=== PATIENT | male | born 1940 | race Caucasian/White ===

== ENCOUNTER → 2016-11-22 | Outpatient (CLI) | payer MEDICARE ==
[2016-11-22 11:58] LABS: Blood Urea Nitrogen 22 mg/dL (9-20); Non-African American GFR(MDRD) >60 (>60 ml/min/1.73 sqM)
== END | disposition home or self-care (01) ==
LOC: LABWHC1 11:18
PROVIDERS: ATTEND Physical Medicine & Rehabilitation
DX: Z01.812 Encounter for preprocedural laboratory examination (principal)
CPT/HCPCS: 36415; 82565; 84520

== ENCOUNTER → 2019-06-06 | Outpatient (CLI) | payer MEDICARE ==
[2019-06-06 10:52] LABS: HGB 12.4 gm/dL (13.0-17.5); MCH 27.1 pg (25.0-35.0); MCV 87.4 fL (80.0-100.0); Mean Platelet Volume 7.6; Platelet Count 310 k/uL (150-450); RBC 4.57 m/uL (4.30-5.90); RDW 14.4 % (11.5-15.5); WBC 11.5 k/uL (3.8-10.6)
[2019-06-06 11:45] LABS: Erythrocyte Sedimentation Rate 16 mm/hr (0-15)
== END | disposition home or self-care (01) ==
LOC: LABWHC1 10:16
PROVIDERS: ATTEND Orthopaedic Surgery
DX: I10 Essential (primary) hypertension (principal); M17.12 Unilateral primary osteoarthritis, left knee; E13.9 Other specified diabetes mellitus without complications; Z68.31 Body mass index [BMI] 31.0-31.9, adult
CPT/HCPCS: 36415; 83520; 85027; 85652; 86140

== ENCOUNTER → 2019-09-07 | Outpatient (CLI) | payer MEDICARE ==
[2019-09-07 10:12] LABS: Appearance,Urine Clear (Clear); Bilirubin,Urine Negative (Negative); Blood,Urine Negative (Negative); Color,Urine Yellow; Glucose,Urine (UA) Negative (Negative); HCT 42.3 % (39.0-53.0); HGB 13.2 gm/dL (13.0-17.5); Ketones,Urine Negative (Negative); Leukocyte Esterase,Urine Small (Negative); MCH 27.2 pg (25.0-35.0); MCHC 31.1 g/dL (31.0-37.0); MCV 87.3 fL (80.0-100.0); Mean Platelet Volume 6.5; Nitrite,Urine Negative (Negative); PH, Urine 5.5 (5.0-8.0); Platelet Count 356 k/uL (150-450); Protein,Urine Trace (Negative); RBC 4.84 m/uL (4.30-5.90); RDW 13.1 % (11.5-15.5); Specific Gravity,Urine 1.012 (1.001-1.035); Urobilinogen,Urine <2.0 mg/dL (<2.0); WBC 6.9 k/uL (3.8-10.6); WBC,Urine 2 /hpf (0-5)
[2019-09-07 10:34] LABS: Albumin 4.1 g/dL (3.5-5.0); Calcium 9.7 mg/dL (8.4-10.2); Potassium 5.5 mmol/L (3.5-5.1); Total Bilirubin 0.6 mg/dL (0.2-1.3)
[2019-09-07 10:50] LABS: INR 0.9 (<1.2); Partial Thromboplastin Time 24.5 sec (22.0-30.0); Prothrombin Time 9.8 sec (9.0-12.0)
== END | disposition home or self-care (01) ==
LOC: LABPAT 09:30
PROVIDERS: ATTEND Orthopaedic Surgery
DX: Z01.812 Encounter for preprocedural laboratory examination (principal); Z01.818 Encounter for other preprocedural examination
CPT/HCPCS: 36415; 80053; 81001; 85027; 85610; 85730; 87070

== ENCOUNTER 2019-09-17 05:34 | Day surgery (SDC) | payer MEDICARE ==
[2019-09-12 10:20] VITALS: BMI 32.3
[~2019-09-17 05:34] MED LIST: ACETAMINOPHEN TAB 500 MG TAB PO ONE; MELOXICAM 7.5 MG TAB PO ONE; ONDANSETRON 4 MG/2 ML VIAL IVP ONE; TRANEXAMIC ACID 1,000 MG in SODIUM CHLORIDE 0.9% 100 ML IVPB ONE; VANCOMYCIN 1,000 MG in SODIUM CHLORIDE 0.9% 250 ML IVPB ONE
[2019-09-17] MEDS ORDERED: LIDOCAINE 1% 20 ML VIAL (10MG/ML) FOR IV START INTRADERMA PRN (05:45)
[2019-09-17] MEDS ORDERED: DEXAMETHASONE SOD PHOSPHATE 10 MG/ML 1 ML VIAL IV ONE (05:45)
[2019-09-17] MEDS ORDERED: ONDANSETRON 4 MG/2 ML VIAL IVP ONE (05:45)
[2019-09-17] MEDS ORDERED: SCOPOLAMINE 1.5MG/72HR PATCH TRANSDERM ONE (05:45)
[2019-09-17] MEDS ORDERED: MIDAZOLAM 2 MG/2 ML VIAL IV PRN (05:45)
[2019-09-17] MEDS ORDERED: HYDROmorphone 0.5 MG/0.5 ML SYRINGE IVP PRN (05:45)
[2019-09-17] MEDS ORDERED: ROPIVACAINE 246.25 MG, EPINEPHrine 0.5 MG, KETOROLAC 30 MG, cloNIDine HCL/PF 80 MCG, WA... MISCELLANE ONE ×5 (06:00)
[2019-09-17 06:40] LABS: Glucose,Whole Blood 124 mg/dL (75-99)
[2019-09-17] MEDS: LACTATED RINGERS 1,000 ML IV SCH ×2 (06:45→15:12)
[2019-09-17] MEDS ORDERED: fentaNYL (PF) 50 MCG/ML 2 ML AMP IVP ONE (07:17)
[2019-09-17] MEDS ORDERED: ePHEDrine SULFATE/0.9% NACL/PF 50 MG/5 ML SYRINGE IV ONE (07:26)
[2019-09-17] MEDS ORDERED: TRANEXAMIC ACID 1,000 MG/10 ML VIAL ONE (07:26)
[2019-09-17] MEDS ORDERED: fentaNYL (PF) 50 MCG/ML 2 ML AMP ONE (07:26)
[2019-09-17] MEDS ORDERED: SODIUM CHLORIDE 0.9% 100 ML BAG ONE (07:26)
[2019-09-17] MEDS ORDERED: ceFAZolin 1,000 MG VIAL IVPB ONE (07:52)
--- NOTE | 2019-09-17 08:11 | P.ANPRN ---
Procedure Note - Anesthesia - Nerve Block Performed Left Adductor Canal Infusion Time Out Performed: Yes Date of Procedure: 09/17/19 Procedure Start Time: 07:16 Procedure Stop Time: 07:24 Location of Patient: PreOp Indication: Acute Post-Operative Pain, Requested by Surgeon Specifically requested for management of pain by DrLalito: Vladimir Raza Sedation Type: Sedate with meaningful contact maintained Preparation: Sterile Prep, Sterile Dressing Position: Supine Catheter Depth at Skin (cm): 5 Catheter: Indwelling Needle Types: Pajunk Needle Gauge: 21 Ultrasound used to visualize needle placement: Yes Ultrasound used to observe medication spread: Yes Injectate: 0.5% Ropivacaine (see comment for volume) Blood Aspirated: No Pain Paresthesia on Injection Noted: No Resistance on Injection: Normal Image Stored and Saved: Yes Events: Uneventful and Well Tolerated
[2019-09-17] MEDS ORDERED: ceFAZolin 3,000 MG in SODIUM CHLORIDE 0.9% IRRIGATIO 3,000 ML IRRIGATION ONE (08:12)
[2019-09-17] MEDS ORDERED: LACTATED RINGERS 1,000 ML IV ONE (08:38)
--- NOTE | 2019-09-17 09:33 | P.OP ---
Date of Procedure: 09/17/19 Procedure(s) Performed: PREOPERATIVE DIAGNOSIS: Left knee severe osteoarthritis with genu varum POSTOPERATIVE DIAGNOSIS: Left knee severe osteoarthritis with genu varum OPERATION: Left knee cemented total replacement arthroplasty. ANESTHESIA: Spinal ESTIMATED BLOOD LOSS: 100 ml. CELL BIOLOGY SCIENTIST: Heber Story PA-C (assistance with: patient positioning, retraction, exposure, hemostasis, leg positioning, implantation, irrigation, closure, dressing) COMPLICATIONS: None apparent. COMPONENTS IMPLANTED: Persona system from [employer] INDICATIONS: Mr. Guerra is an 79-year-old male with a history of left knee osteoarthritis. He has already successfully undergone right knee replacement in 2013. Conservative treatment has been tried and has been unsuccessful in controlling symptoms adequately. The operation of knee replacement has been discussed at length in the office, as well as potential risks and complications. These are inclusive of, but not limited to: bleeding, infection, scarring, discomfort, blood vessel and nerve damage, need for further surgery, failure to relieve symptoms, persistence, recurrence, or worsening of problems, loosening, dislocation, wear, blood clot, pulmonary embolism, , gait dysfunction, stiffness, and other risks as discussed in the office. The patient elects to proceed and the consent form has been signed. PROCEDURE: The patient was taken to the operating room and positioned on the operating room table in the supine position. Anesthesia was initiated. Care was taken to make sure that all pressure points were adequately padded. The operative lower extremity was prepped and draped in the usual aseptic fashion using ChloraPrep. Ioban drape was used for the case and the patient received intravenous antibiotics within one hour of the incision. A pneumotourniquet and leg mays were used for the case. The limb was exsanguinated with an Esmarch bandage and the tourniquet was inflated to 350 mmHg. Time-out was called confirming the patient's identity, side, procedure and administration of antibiotics and tranexamic acid, 1 g IV. Due to the patient's history of possible MRSA infection, vancomycin IV as well as cefazolin IV was administered preoperatively. The incision was then created midline directly over the knee, carried down through skin and into the subcutaneous tissues and down to fascia. Full thickness subcutaneous medial flap was developed. Medial parapatellar arthrotomy was performed and the interior of the knee was inspected. There was end-stage osteoarthritis of the knee with a mild to moderate genu varum type deformity. The fat pad was excised and proximal medial release on the tibia was completed using meticulous dissection and a curved osteotome. The anterior cruciate ligament was taken down. Note was made of significant attrition of the anterior and significant degenerative appearance of the posterior cruciate ligaments. The exposure was excellent. The knee was flexed 90 degrees and the patella was everted. A spot was chosen on the femur approximately 1 cm anterior to the posterior cruciate ligament i nsertion and an intramedullary hole was created within the femur. The intramedullary guide was then set to 5 degrees of valgus. The distal cutting block was attached and pinned into position. An appropriate amount of distal femoral resection was set. The oscillating saw was then used to make the distal femoral cut. This cut was confirmed to be flat with the flat end of an osteotome. The retractors were placed around the tibia and the tibial surface was addressed. The angle and depth of resection was adjusted using an extramedullary cutting guide. The guide had a built-in 3 degree posterior slope cut. Once the cutting guide was adjusted appropriately and in line with the axis of the tibia and confirmed to be in good position in relation to the second metatarsal and transmalleolar axis, the tibial cut was then created with protection of the posterior neurovascular structures and the collateral ligaments. The tibial cut surface was removed and sized. Femoral sizing was then accomplished using anterior referencing. Care was taken to analyze the posterior condyles for signs of deficiency or severe wear, and adjustments to the guide were made, as appropriate. 3 degree external ro tation pins were placed. The cutting jig for the femur was applied to these pins. The planned cuts were further analyzed prior to performing them with the oscillating saw. No femoral notching was produced. Bone fragments were removed and the cut surfaces were finished, as necessary, with a reciprocating saw. Spacer block technique was then used to confirm that the flexion and extension gaps were equal. Soft tissue releases and adjustment of the tibial and/or femoral cuts were made, as necessary, until the gaps were equal. This included release of the posterior cruciate ligament, which was tight in this patient. The femur was then further finished for a posterior cruciate ligament substituting component. Patellar resurfacing was performed using a reamer. The size of the required pat ellar component was estimated and the patellar surface was then reamed down to a residual thickness which would recreate the [place] thickness with the component. The exact placement of the patellar component was adjusted for position based on preoperative x-rays and intraoperative findings. Prior to placing trial components, anesthetic solution consisting of ropivicaine with epinephrine, ketorolac, and clonidine was injected carefully and methodically in a grid pattern using aspiration technique into the soft tissue around the knee circumferentially, starting with the deeper tissues first and progressing to fascia, and then finally the skin/subcutaneous tissue. Particular care was taken when injecting the posterior capsule. The trial components were inserted. The tibial tray was allowed to self center and the patella was noted to track very well. The position of the tibial component was marked and the tibia was then finished for a stemmed tibial component. Cement containing antibiotic was mixed on the back table and applied to the final components. Trial components were removed and the cut surfaces of the bone were pulse lavaged thoroughly and dried. Antibiotic Cement was then applied to the tibial surface and pressurized into the surface using finger pressurization technique. The tibial component was then applied and excess cement was removed after it was impacted securely and noted to be flush with the cut surface. In similar fashion, the antibiotic cement was applied to the cut femoral surface, pressurized in using finger pressurization and the component was im pacted into place. Excess cement was removed. The polyethylene spacer was then implanted and locked into position. The patellar component was then applied in similar technique and a patellar clamp was used to hold the patella in place as the cement hardened. Once the cement had fully hardened, the knee was reinspected. Any other cement extrusion was removed and final kinematic testing showed range of motion from 0 to 130 degrees with excellent stability, both medially and laterally and appropriate alignment of the leg. Patellar tracking was excellent. The knee was then thoroughly pulse lavaged with normal saline. The tourniquet was deflated and hemostasis was obtained with electrocautery and IV tranexamic acid, 1 g given prior to inflation of the tourniquet and another gram given at the time of closure. Closure was with #2 Ethibond in the fascia and supplemented with #2 Quill, 2-0 Vicryl suture was used for the subcutaneous tissues and 3-0 Quill for the skin. Dermabond/Steri-Strips were then applied. A lightly compressive dressing was applied using Webril and an Asad wrap. The patient was then transferred to [facility] and taken to the recovery room in stable condition. Sponge and needle counts were correct.
[2019-09-17] MEDS ORDERED: NALOXONE 0.4 MG/ML 1 ML VIAL IV PRN (09:48)
[2019-09-17] MEDS ORDERED: hydrOXYzine PAMOATE 25 MG CAP PO PRN (09:48)
[2019-09-17] MEDS ORDERED: MAGNESIUM HYDROXIDE 2,400 MG/10 ML CUP PO PRN (09:48)
[2019-09-17] MEDS ORDERED: ONDANSETRON 4 MG/2 ML VIAL IVP PRN (09:48)
[2019-09-17] MEDS ORDERED: ROPIVACAINE 0.2%-NS ON-Q PUMP 1,090 MG, EMPTY PAIN BALL 1 EACH MISCELLANE PRN (10:05)
--- NOTE | 2019-09-17 10:27 | XR ---
EXAMINATION TYPE: XR knee limited LT DATE OF EXAM: 09/17/2019 COMPARISON: NONE HISTORY: post op TECHNIQUE: 2 view FINDINGS: There is postoperative change with soft tissue edema and emphysema. Postoperative change ap pears in near-anatomic alignment. Soft tissue ossification seen anterior to the distal diaphysis of t he femur noted. IMPRESSION: Postoperative change
[2019-09-17 10:36] LABS: Glucose,Whole Blood 175 mg/dL (75-99)
[2019-09-17] MEDS: TAMSULOSIN 0.4 MG CAP.ER.24H PO SCH (16:06)
[2019-09-17] MEDS: LISINOPRIL 20 MG TAB PO SCH ×2 (16:06→22:33)
[2019-09-17 16:41] LABS: Glucose,Whole Blood 360 mg/dL (75-99)
[2019-09-17] MEDS: INSULIN ASPART (NovoLOG) 100 UNIT/ML VIAL SQ SCH ×2 (17:01→20:31)
[2019-09-17] MEDS: metFORMIN 500 MG TAB PO SCH (20:17)
[2019-09-17 20:18] LABS: Glucose,Whole Blood 320 mg/dL (75-99)
[2019-09-17] MEDS ORDERED: VANCOMYCIN IV PER PHARMACY 1 EACH MISC MISCELLANE SCH (21:00)
[2019-09-17] MEDS ORDERED: SENNOSIDES-DOCUSATE SODIUM 1 EACH TAB PO SCH (21:00)
[2019-09-18] MEDS: HYDROcodone/APAP 7.5-325MG 1 EACH TAB PO PRN ×2 (05:45→12:06)
[2019-09-18 07:05] LABS: Glucose,Whole Blood 83 mg/dL (75-99)
[2019-09-18] MEDS: LACTATED RINGERS 1,000 ML IV SCH ×2 (07:26→09:20)
[2019-09-18] MEDS: INSULIN ASPART (NovoLOG) 100 UNIT/ML VIAL SQ SCH ×2 (07:28→12:06)
[2019-09-18 07:29] LABS: Basophils % (A) 0 %; Eosinophils # (A) 0.1 k/uL (0-0.7); Eosinophils % (A) 1 %; HCT 32.6 % (39.0-53.0); Lymphocytes # (A) 1.8 k/uL (1.0-4.8); Lymphocytes % (A) 13 %; MCH 27.4 pg (25.0-35.0); MCHC 31.4 g/dL (31.0-37.0); Mean Platelet Volume 8.4; Monocytes # (A) 0.9 k/uL (0-1.0); Monocytes % (A) 7 %; Neutrophils % (A) 79 %; Platelet Count 260 k/uL (150-450); RBC 3.74 m/uL (4.30-5.90)
[2019-09-18 07:32] LABS: HGB 10.2 gm/dL (13.0-17.5)
[2019-09-18] MEDS ORDERED: THYROID, PORK 30 MG TAB PO SCH (09:00)
[2019-09-18] MEDS ORDERED: ASPIRIN 325 MG TAB PO SCH (09:00)
[2019-09-18] MEDS: metFORMIN 500 MG TAB PO SCH (09:21)
[2019-09-18] MEDS: TAMSULOSIN 0.4 MG CAP.ER.24H PO SCH (09:22)
[2019-09-18] MEDS: LISINOPRIL 20 MG TAB PO SCH (09:22)
--- NOTE | 2019-09-18 10:26 | P.PN ---
Progress Note - Text 09/18 707am 79-year-old male status post total knee replacement by Dr. Raza. Patient has an On-Q pump for postop pain control with the solution running at 10 mL an hour, patient has a VAS of 2 and to continue On-Q pump infusion
[2019-09-18 11:48] LABS: Glucose,Whole Blood 106 mg/dL (75-99)
--- NOTE | 2019-09-18 15:01 | P.CONS ---
History of Present Illness - Reason for Consult Consult date: 09/18/19 medical management - Chief Complaint knee pain - History of Present Illness Jose Guerra is an 79 yo M with PMH of OA, HTN, T2DM, hypothyroid who is admitted for a scheduled L TKA with Dr. Raza. He underwent the procedure yesterday and is feeling overall well this morning. He reports minimal pain with rest and tolerable with ambulation. He has been able to complete ADLs today, denies chest pain, shortness of breath, leg swelling, fever, or chills. Labs and vitals are stable. Review of Systems All systems: negative Constitutional: Denies chills, Denies fever Eyes: denies blurred vision, denies pain Ears, nose, mouth and throat: Denies headache, Denies sore throat Cardiovascular: Denies chest pain, Denies shortness of breath Respiratory: Denies cough Gastrointestinal: Denies abdominal pain, Denies diarrhea, Denies nausea, Denies vomiting Musculoskeletal: Reports as per HPI, Reports gait dysfunction, Denies myalgias Integumentary: Denies pruritus, Denies rash Neurological: Denies numbness, Denies weakness Psychiatric: Denies anxiety, Denies depression Endocrine: Denies fatigue, Denies weight change Past Medical History Past Medical History: Coronary Artery Disease (CAD), Cancer, Diabetes Mellitus, Hypertension, Prostate Disorder Additional Past Medical History / Comment(s): hx of melanoma skin, cyst on chest History of Any Multi-Drug Resistant Organisms: MRSA Year Discovered:: 06/04/19 MDRO Source:: Right Knee Past Surgical History: Joint Replacement, Orthopedic Surgery Additional Past Surgical History / Comment(s): jermaine shoulder rotator cuff, left carotid, jermaine cataract removal, cyst on chest drained, rt knee replaced, TLK Past Anesthesia/Blood Transfusion Reactions: No Reported Reaction Past Psychological History: No Psychological Hx Reported Smoking Status: Former smoker Past Alcohol Use History: Occasional Additional Past Alcohol Use History / Comment(s): "socially". smoker for 28 years quit 1981 Past Drug Use History: None Reported - Past Family History Father Family Medical History: Cancer Additional Family Medical History / Comment(s): Lung Cancer Sister(s) Family Medical History: Cancer Additional Family Medical History / Comment(s): Breast Cancer Medications and Allergies Home Medications Medication Instructions Recorded Confirmed Type Glimepiride [Amaryl] 2 mg PO AC-BRKFST 05/02/14 12/09/19 History Tamsulosin [Flomax] 0.4 mg PO DAILY 02/08/14 09/17/19 History metFORMIN HCL [Glucophage] 500 mg PO BID 02/08/14 09/17/19 History Ascorbic Acid [Vitamin C] 1,000 mg PO DAILY 09/12/19 09/17/19 History Cholecalciferol [Vitamin D3 (25 5,000 unit PO DAILY 09/12/19 09/17/19 History Mcg = 1000 Iu)] Cranberry Fruit Extract [Cranberry] 4,200 mg PO DAILY 09/12/19 09/17/19 History Lisinopril [Zestril] 40 mg PO BID 09/12/19 09/17/19 History Multivitamins, Thera [Multivitamin 1 tab PO DAILY 09/12/19 09/17/19 History (formulary)] Thyroid,Pork [[place] Thyroid] 60 mg PO DAILY 09/12/19 09/17/19 History Aspirin 325 mg PO DAILY #28 tab 09/18/19 Rx HYDROcodone/APAP 7.5-325MG [[place] 1 tab PO Q6HR PRN 7 Days #30 tab 09/18/19 Rx 7.5-325] Allergies Allergy/AdvReac Type Severity Reaction Status Date / Time Penicillins Allergy Swelling Verified 09/17/19 06:13 venom-honey bee Allergy Swelling Verified 09/17/19 06:13 [bee venom (honey bee)] Physical Exam Vitals: Vital Signs Temp Pulse Resp BP Pulse Ox 09/18/19 09:13 67 111/65 95 09/18/19 07:00 98.3 F 58 L 15 105/49 95 09/17/19 23:00 97.9 F 67 16 119/54 96 Intake and Output 09/17/19 09/18/19 09/18/19 22:59 06:59 14:59 Other: Voiding Method Toilet Toilet General: well nourished, well developed, NAD. Vitals reviewed Eyes: PERRL, EOMI, conjunctiva normal HENT: normocephalic, mucus membranes moist Neck: supple, no JVD Lungs: normal respiratory effort, no wheezes or rales CV: Regular rate and rhythm, no murmur. Peripheral pulses 2+ Abdomen: soft, nondistended, no organomegaly MSK: LLE with gilson wrap. No distal edema. Lymph: no cervical or axillary LAD Skin: warm and dry. Neuro: A&Ox3, normal mood and affect Results CBC & Chem 7: 09/18/19 06:45 09/17/19 06:35 Labs: Abnormal Lab Results - Last 24 Hours (Table) 09/17/19 09/17/19 09/18/19 Range/Units 16:39 20:16 06:45 WBC 14.0 H (3.8-10.6) k/uL RBC 3.74 L (4.30-5.90) m/uL Hgb 10.2 L D (13.0-17.5) gm/dL Hct 32.6 L (39.0-53.0) % Neutrophils # 11.0 H (1.3-7.7) k/uL POC Glucose (mg/dL) 360 H 320 H (75-99) mg/dL 09/18/19 Range/Units 11:36 WBC (3.8-10.6) k/uL RBC (4.30-5.90) m/uL Hgb (13.0-17.5) gm/dL Hct (39.0-53.0) % Neutrophils # (1.3-7.7) k/uL POC Glucose (mg/dL) 106 H (75-99) mg/dL Assessment and Plan (1) Essential hypertension Current Visit: Yes Status: Acute Code(s): I10 - ESSENTIAL (PRIMARY) HYPERTENSION SNOMED Code(s): 63615063 (2) Type 2 diabetes mellitus Current Visit: Yes Status: Acute Code(s): E11.9 - TYPE 2 DIABETES MELLITUS WITHOUT COMPLICATIONS SNOMED Code(s): 53243939 (3) Acquired hypothyroidism Current Visit: Yes Status: Acute Code(s): E03.9 - HYPOTHYROIDISM, UNSPECI FIED SNOMED Code(s): 209901042 (4) Osteoarthritis Current Visit: Yes Status: Acute Code(s): M19.90 - UNSPECIFIED OSTEOARTHRITIS, UNSPECIFIED SITE SNOMED Code(s): 119002875 (5) S/P total knee arthroplasty Current Visit: No Status: Acute Code(s): Z96.659 - PRESENCE OF UNSPECIFIED ARTIFICIAL KNEE JOINT SNOMED Code(s): 9534618064298 Plan: 1. S/p L TKA. Pain control. Encourage ambulation. Continue with IS. He is medically stable for discharge 2. HTN. Continue lisinopril 3. T2DM. Continue metformin. Accucheck/sliding scale DVT prophylaxis ASA 325 mg
--- NOTE | 2019-09-18 15:36 | P.DS ---
Providers Expected date of discharge: 09/18/19 Attending physician: Vladimir Raza Consults: 09/17/19 09:48 Consult Physician Routine Consulting Provider: Luis E Ponce Consult Reason/Comments: Postoperative medical management Do you want consulting provider notified?: Yes Primary care physician: Lexis Mcfarland [place] [facility] Course: This is an 79-year-old male who has been followed for left knee osteoarthritis. Conservative measures have failed at controlling his symptoms, therefore surgery was recommended. He underwent a successful right knee total arthroplasty in [address] Raza. The patient underwent a left ottal knee arthroplasty on 09/17/[address] Raza. He was admitted to [facility] following the procedure with a consult placed to internal medicine for perioperative medical management. The procedure was performed without complication or sequelae. The patient is doing fairly well postoperatively. Vital signs and labs are stable on postoperative day #1. Patient was examined bedside today. He states he is doing very well this morning, the pain in his left knee is currently well-controlled. He was up to the bathroom multiple times throughout the night, with assistance and with a walker. He tolerated his breakfast well. He has had a bowel movement post- operatively. He states he is safe being discharged to home, he has the help of his . He denies chest pain, shortness of breath, nausea, vomiting, numbness or tingling. Vital signs stable. On examination, the patient is sitting up in bed in no apparent distress. He is alert and orientated x3. On inspection of the left knee, there is an THERESA bandage in place with no active drainage or bleeding. Neurovascular status is intact throughout the left lower extremity with motor and sensation fully intact. Calf is soft and nontender. 2+ dorsalis pedis pulse and a brisk capillary refill is present. Right lower extremity compression cuff in place, the right calf is soft and nontender to palpation. Patient is discharged home in good condition, pending medical clearance. Patient will follow-up with Dr. Raza in the office in 2 weeks. Please see med rec for accurate list of discharge medication. Patient Condition at Discharge: Fair Plan - Discharge Summary New Discharge Prescriptions: New HYDROcodone/APAP 7.5-325MG [[place] 7.5-325] 1 tab PO Q6HR PRN 7 Days #30 tab PRN Reason: Pain Aspirin 325 mg PO DAILY #28 tab No Action Tamsulosin [Flomax] 0.4 mg PO DAILY metFORMIN HCL [Glucophage] 500 mg PO BID Glimepiride [Amaryl] 2 mg PO AC-BRKFST Cholecalciferol [Vitamin D3 (25 Mcg = 1000 Iu)] 5,000 unit PO DAILY Thyroid,Pork [[place] Thyroid] 60 mg PO DAILY Multivitamins, Thera [Multivitamin (formulary)] 1 tab PO DAILY Lisinopril [Zestril] 40 mg PO BID Cranberry Fruit Extract [Cranberry] 4,200 mg PO DAILY Ascorbic Acid [Vitamin C] 1,000 mg PO DAILY Discharge Medication List Glimepiride [Amaryl] 2 mg PO AC-BRKFST 02/08/14 [History] Tamsulosin [Flomax] 0.4 mg PO DAILY 02/08/14 [History] metFORMIN HCL [Glucophage] 500 mg PO BID 02/08/14 [History] Ascorbic Acid [Vitamin C] 1,000 mg PO DAILY 09/12/19 [History] Cholecalciferol [Vitamin D3 (25 Mcg = 1000 Iu)] 5,000 unit PO DAILY 09/12/19 [History] Cranberry Fruit Extract [Cranberry] 4,200 mg PO DAILY 09/12/19 [History] Lisinopril [Zestril] 40 mg PO BID 09/12/19 [History] Multivitamins, Thera [Multivitamin (formulary)] 1 tab PO DAILY 09/12/19 [History] Thyroid,Pork [[place] Thyroid] 60 mg PO DAILY 09/12/19 [History] Aspirin 325 mg PO DAILY #28 tab 09/18/19 [Rx] HYDROcodone/APAP 7.5-325MG [[place] 7.5-325] 1 tab PO Q6HR PRN 7 Days #30 tab 09/18/19 [Rx] Follow up Appointment(s)/Referral(s): [facility], [NON-STAFF] - As Needed Vladimir Raza MD [STAFF PHYSICIAN] - 09/28/19 9:40 am (Patient may follow-up with Dr. Raza at [facility] in 2-3 weeks following discharge. ) Lexis Mcfarland DO [Primary Care Provider] - 1 Week Activity/Diet/Wound Care/Special Instructions: 1. Keep dressing over the left knee clean, dry, intact 2. Daily dressing changes over the left knee as needed 3. Weight-bear as tolerated on the left lower extremity 4. Patient may shower without dressing intact incision site remains dry over the next 72 hours 5. Take medications as prescribed 6. Do not soak in tub Discharge Disposition: HOME SELF-CARE
[2019-09-18 16:15] VITALS: BP 165/71; PULSE 69; RESP 16; TEMP 97.8
[2019-09-18 17:01] LABS: Glucose,Whole Blood 169 mg/dL (75-99)
[2019-09-18] MEDS ORDERED: LISINOPRIL 20 MG TAB PO SCH (21:00)
== END 2019-09-18 17:24 | disposition home or self-care (01) ==
LOC: OR 05:34 → 4SSUR 12:47 → OR 09-18 17:24
PROVIDERS: ATTEND Orthopaedic Surgery
DX: M17.12 Unilateral primary osteoarthritis, left knee (principal); M21.162 Varus deformity, not elsewhere classified, left knee; I25.10 Atherosclerotic heart disease of native coronary artery without angina pectoris; I10 Essential (primary) hypertension; R63.4 Abnormal weight loss; E11.9 Type 2 diabetes mellitus without complications; E78.5 Hyperlipidemia, unspecified; E03.9 Hypothyroidism, unspecified; Z87.891 Personal history of nicotine dependence; Z86.14 Personal history of Methicillin resistant Staphylococcus aureus infection; H91.90 Unspecified hearing loss, unspecified ear; Z97.3 Presence of spectacles and contact lenses; Z96.651 Presence of right artificial knee joint; Z85.820 Personal history of malignant melanoma of skin; Z98.49 Cataract extraction status, unspecified eye; Z97.2 Presence of dental prosthetic device (complete) (partial); Z83.3 Family history of diabetes mellitus; Z82.49 Family history of ischemic heart disease and other diseases of the circulatory system; Z80.1 Family history of malignant neoplasm of trachea, bronchus and lung; Z80.3 Family history of malignant neoplasm of breast; Z79.84 Long term (current) use of oral hypoglycemic drugs; Z79.890 Hormone replacement therapy; Z79.899 Other long term (current) drug therapy; Z79.82 Long term (current) use of aspirin; Z88.0 Allergy status to penicillin; Z88.2 Allergy status to sulfonamides; Z91.030 Bee allergy status
CPT/HCPCS: 97162; 64448; 76942; 84132; 85025; 88300; 73560; 27447; C1776; C1713; J2250; J0171; J1100; J0690 ×2; J2405; J3010; J1885; J2795 ×2; J0735; J1170

== ENCOUNTER 2019-10-14 04:52 | Observation (INO) | payer MEDICARE ==
[2019-10-14] MEDS ORDERED: SODIUM CHLORIDE 0.9% 500 ML 500 ML IV STA (04:55)
[2019-10-14 05:05] LABS: Glucose,Whole Blood 149 mg/dL (75-99)
[2019-10-14 05:09] LABS: Basophils # (A) 0.1 k/uL (0-0.2); Basophils % (A) 1 %; Eosinophils # (A) 0.4 k/uL (0-0.7); Eosinophils % (A) 4 %; HCT 35.1 % (39.0-53.0); Lymphocytes # (A) 2.4 k/uL (1.0-4.8); Lymphocytes % (A) 19 %; MCHC 31.3 g/dL (31.0-37.0); MCV 86.5 fL (80.0-100.0); Mean Platelet Volume 7.2; Monocytes # (A) 0.7 k/uL (0-1.0); Monocytes % (A) 5 %; Neutrophils # (A) 8.8 k/uL (1.3-7.7); Neutrophils % (A) 70 %; Platelet Count 446 k/uL (150-450); RBC 4.06 m/uL (4.30-5.90); WBC 12.6 k/uL (3.8-10.6)
--- NOTE | 2019-10-14 05:18 | ED ---
Syncope HPI - General Stated Complaint: Syncope Time Seen by Provider: 10/14/19 04:55 Source: patient Mode of arrival: EMS Limitations: no limitations - History of Present Illness Initial Comments: Jose is an 79-year-old gentleman with extensive past medical history is documented below, patient underwent left total knee replacement in early September. He's been recovering well from that. Patient reports that he woke around 2 AM to use the restroom had no problem ambulating to the restroom and then back to bed. Upon going to back to bed he reports he began to feel some ep igastric and lower substernal discomfort he initially thought were hunger pains. He was tired and didn't think he wanted to get up but they worsened prevent him from sleeping and prompted him to get up. Patient reports that upon getting up he began to feel fuzzy all over and unwell his then heard him slumped to the floor. He was awake and talking no seizure activity no head trauma but he s eemed to be breathing hard and she called 911. Patient denies any exertional chest pain, palpitations, shortness of breath or diaphoresis. - Related Data Home Medications Medication Instructions Recorded Confirmed Glimepiride [Amaryl] 2 mg PO [id number] 02/08/14 09/17/19 Tamsulosin [Flomax] 0.4 mg PO DAILY 02/08/14 09/17/19 metFORMIN HCL [Glucophage] 500 mg PO BID 02/08/14 09/17/19 Ascorbic Acid [Vitamin C] 1,000 mg PO DAILY 09/12/19 09/17/19 Cholecalciferol [Vitamin D3 (25 5,000 unit PO DAILY 09/12/19 09/17/19 Mcg = 1000 Iu)] Cranberry Fruit Extract [Cranberry] 4,200 mg PO DAILY 09/12/19 09/17/19 Lisinopril [Zestril] 40 mg PO BID 09/12/19 09/17/19 Multivitamins, Thera [Multivitamin 1 tab PO DAILY 09/12/19 09/17/19 (formulary)] Thyroid,Pork [[place] Thyroid] 60 mg PO DAILY 09/12/19 09/17/19 Previous Rx's Medication Instructions Recorded Aspirin 325 mg PO DAILY #28 tab 09/18/19 HYDROcodone/APAP 7.5-325MG [[place] 1 tab PO Q6HR PRN 7 Days #30 tab 09/18/19 7.5-325] Allergies Allergy/AdvReac Type Severity Reaction Status Date / Time Penicillins Allergy Swelling Verified 09/17/19 06:13 venom-honey bee Allergy Swelling Verified 09/17/19 06:13 [bee venom (honey bee)] Review of Systems ROS Statement: Those systems with pertinent positive or pertinent negative responses have been documented in the HPI. ROS Other: All systems not noted in ROS Statement are negative. Past Medical History Past Medical History: Coronary Artery Disease (CAD), Diabetes Mellitus, Hypertension, Prostate Disorder Additional Past Medical History / Comment(s): hx of melanoma skin, resolving "boil" to right groin, has been on antibiotics, states now size of "BB", states Dr Raza's PA aware History of Any Multi-Drug Resistant Organisms: MRSA Date of last positivie culture/infection: 06/04/19 MDRO Source:: Right Knee Past Surgical History: Orthopedic Surgery Additional Past Surgical History / Comment(s): R knee 2014, L knee SEP 2019 Past Anesthesia/Blood Transfusion Reactions: No Reported Reaction Past Psychological History: No Psychological Hx Reported Smoking Status: Former smoker Past Alcohol Use History: Occasional Past Drug Use History: None Reported - Past Family History Father Family Medical History: Cancer Additional Family Medical History / Comment(s): Lung Cancer Sister(s) Family Medical History: Cancer Additional Family Medical History / Comment(s): Breast Cancer General Exam - General Exam Comments Initial Comments: Physical Exam GENERAL: Patient is well-developed and well-nourished. Patient is nontoxic and well- hydrated and is in no distress. HENT: Normocephalic, Atraumatic. EYES: PERRL, EOMI PULMONARY: Unlabored respirations. No audible rales rhonchi or wheezing was noted. CARDIOVASCULAR: There is a regular rate and rhythm without any murmurs gallops or rubs. ABDOMEN: Soft and nontender with normal bowel sounds. SKIN: Skin is clear with no lesions or rashes and otherwise unremarkable. : Deferred NEUROLOGIC: Patient is alert and oriented x3. Moving all extremities spontaneously MUSCULOSKELETAL: Normal extremities with adequate strength and full range of motion. No lower extremity swelling or edema. No calf tenderness. PSYCHIATRIC: Normal psychiatric evaluation. Limitations: no limitations Course Vital Signs 10/14/19 10/14/19 10/14/19 04:54 05:30 06:00 Temperature 98.2 F Pulse Rate 80 82 84 Respiratory 18 14 16 Rate Blood Pressure 149/61 149/61 125/59 O2 Sat by Pulse 99 99 99 Oximetry 10/14/19 06:30 Temperature Pulse Rate 80 Respiratory 16 Rate Blood Pressure 149/72 O2 Sat by Pulse 98 Oximetry EKG Findings - EKG Comments: EKG Findings:: EKG was obtained due to complaint of syncope, EKG was obtained at 4:57 AM, rate is 77 rhythm is sinus with PACs. Leftward axis, normal intervals, PA 148, QRS 86, QTC 439. No acute ST elevations or depressions no evidence of acute ischemia or infarction. Medical Decision Making - Medical Decision Making She was seen and evaluated history is obtained from patient, EMS and daughter bedside 79-year-old gentleman recent knee surgery with a syncopal episode after having experienced some epigastric discomfort that he describes that arrived as gnawing hunger-like pains EKG was nonischemic Has resulted with significantly elevated d-dimer and a CTA was obtained resulted with no signs of PE. Patient care was discussed with Kinjal from [facility] hospitalist group who agrees with plan for patient patient in observation, serial troponins and evaluation by cardiology. Admission orders were placed. - Lab Data Result diagrams: 10/14/19 05:04 10/14/19 05:04 Lab Results 10/14/19 10/14/19 10/14/19 Range/Units 05:03 05:04 05:04 WBC 12.6 H (3.8-10.6) k/uL RBC 4.06 L (4.30-5.90) m/uL Hgb 11.0 L (13.0-17.5) gm/dL Hct 35.1 L (39.0-53.0) % MCV 86.5 (80.0-100.0) fL MCH 27.0 (25.0-35.0) pg MCHC 31.3 (31.0-37.0) g/dL RDW 13.0 (11.5-15.5) % Plt Count 446 (150-450) k/uL Neutrophils % 70 % Lymphocytes % 19 % Monocytes % 5 % Eosinophils % 4 % Basophils % 1 % Neutrophils # 8.8 H (1.3-7.7) k/uL Lymphocytes # 2.4 (1.0-4.8) k/uL Monocytes # 0.7 (0-1.0) k/uL Eosinophils # 0.4 (0-0.7) k/uL Basophils # 0.1 (0-0.2) k/uL PT (9.0-12.0) sec INR (<1.2) APTT (22.0-30.0) sec D-Dimer (<0.60) mg/L FEU Sodium 133 L (137-145) mmol/L Potassium 4.2 (3.5-5.1) mmol/L Chloride 101 (98-107) mmol/L Carbon Dioxide 27 (22-30) mmol/L Anion Gap 5 mmol/L BUN 21 H (9-20) mg/dL Creatinine 0.99 (0.66-1.25) mg/dL Est GFR (CKD-EPI)AfAm 82 (>60 ml/min/1.73 sqM) Est GFR (CKD-EPI)NonAf 71 (>60 ml/min/1.73 sqM) Glucose 153 H (74-99) mg/dL POC Glucose (mg/dL) 149 H (75-99) mg/dL POC Glu Medical Stenographer ID Madisyn Coats Calcium 9.6 (8.4-10.2) mg/dL Magnesium 1.8 (1.6-2.3) mg/dL Total Bilirubin 0.4 (0.2-1.3) mg/dL AST 64 H (17-59) U/L ALT 32 (4-49) U/L Alkaline Phosphatase 80 (38-126) U/L Troponin I (0.000-0.034) ng/mL Total Protein 6.0 L (6.3-8.2) g/dL Albumin 3.4 L (3.5-5.0) g/dL 10/14/19 10/14/19 Range/Units 05:04 05:04 WBC (3.8-10.6) k/uL RBC (4.30-5.90) m/uL Hgb (13.0-17.5) gm/dL Hct (39.0-53.0) % MCV (80.0-100.0) fL MCH (25.0-35.0) pg MCHC (31.0-37.0) g/dL RDW (11.5-15.5) % Plt Count (150-450) k/uL Neutrophils % % Lymphocytes % % Monocytes % % Eosinophils % % Basophils % % Neutrophils # (1.3-7.7) k/uL Lymphocytes # (1.0-4.8) k/uL Monocytes # (0-1.0) k/uL Eosinophils # (0-0.7) k/uL Basophils # (0-0.2) k/uL PT 10.1 (9.0-12.0) sec INR 0.9 (<1.2) APTT 22.4 (22.0-30.0) sec D-Dimer 2.81 H (<0.60) mg/L FEU Sodium (137-145) mmol/L Potassium (3.5-5.1) mmol/L Chloride (98-107) mmol/L Carbon Dioxide (22-30) mmol/L Anion Gap mmol/L BUN (9-20) mg/dL Creatinine (0.66-1.25) mg/dL Est GFR (CKD-EPI)AfAm (>60 ml/min/1.73 sqM) Est GFR (CKD-EPI)NonAf (>60 ml/min/1.73 sqM) Glucose (74-99) mg/dL POC Glucose (mg/dL) (75-99) mg/dL POC Glu Medical Stenographer ID Calcium (8.4-10.2) mg/dL Magnesium (1.6-2.3) mg/dL Total Bilirubin (0.2-1.3) mg/dL AST (17-59) U/L ALT (4-49) U/L Alkaline Phosphatase (38-126) U/L Troponin I <0.012 (0.000-0.034) ng/mL Total Protein (6.3-8.2) g/dL Albumin (3.5-5.0) g/dL Disposition Clinical Impression: Syncope, Epigastric pain Disposition: ADMITTED IP TO THIS HOSP Condition: Stable Is patient prescribed a controlled substance at d/c from ED?: No Referrals: Lexis Mcfarland DO [Primary Care Provider] - 1-2 days
[2019-10-14 05:20] LABS: Albumin 3.4 g/dL (3.5-5.0); Calcium 9.6 mg/dL (8.4-10.2); Magnesium 1.8 mg/dL (1.6-2.3); Potassium 4.2 mmol/L (3.5-5.1); Total Bilirubin 0.4 mg/dL (0.2-1.3)
[2019-10-14 05:32] LABS: INR 0.9 (<1.2); Partial Thromboplastin Time 22.4 sec (22.0-30.0); Prothrombin Time 10.1 sec (9.0-12.0)
[2019-10-14 05:34] LABS: D-Dimer 2.81 mg/L FEU (<0.60)
--- NOTE | 2019-10-14 05:54 | XR ---
EXAM: XR Chest, 2 Views CLINICAL HISTORY: Chest Pain TECHNIQUE: Frontal and lateral views of the chest. COMPARISON: No relevant prior studies available. FINDINGS: Lungs: Flattening of both hemidiaphragms suggestive of COPD. Pleural space: Unremarkable. No pneumothorax. Heart: Unremarkable. No cardiomegaly. Mediastinum: See below. Bones/joints: Unremarkable. Vasculature: Widening of the superior mediastinum, raising concern for aortic aneurysm. IMPRESSION: 1. Widening of the superior mediastinum, raising concern for aortic aneurysm. CTA of the chest is recommended for further evaluation. 2. COPD suggested.
--- NOTE | 2019-10-14 07:04 | CT ---
EXAM: CT Angiography Chest With Intravenous Contrast CLINICAL HISTORY: syncope, elevated dimer TECHNIQUE: Axial computed tomographic angiography images of the chest with intravenous contrast. CTDI is 19.67 mGy and DLP is 459.5 mGy-cm. This CT exam was performed using one or more of the following dose reduction techniques: automated exposure control, adjustment of the mA and/or kV according to patient size, and/or use of iterative reconstruction technique. MIP reconstructed images were created and reviewed. COMPARISON: No relevant prior studies available. FINDINGS: Pulmonary arteries: Main pulmonary artery measures up to 3.2 cm in diameter suggesting pulmonary hypertension. No pulmonary embolism. Aorta: Mild calcific and noncalcific atheromatous disease involving the intrathoracic aorta. No thoracic aortic aneurysm. Lungs: Atelectasis involving the lingula. No mass. Pleural space: Unremarkable. No significant effusion. No pneumothorax. Heart: Heart is normal in size. 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 No significant pericardial effusion. No evidence of RV dysfunction. Bones/joints: No acute fracture. No dislocation. Soft tissues: Unremarkable. Lymph nodes: Unremarkable. No enlarged lymph nodes. IMPRESSION: 1. No evidence of PE. 2. Main pulmonary artery measures up to 3.2 cm in diameter suggesting pulmonary hypertension. 3. 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 Correlate clinically
[2019-10-14] MEDS ORDERED: MAG HYDROX/AL HYDROX/SIMETH 30 ML CUP PO PRN (13:11)
[2019-10-14] MEDS ORDERED: IPRATROPIUM-ALBUTEROL 3 ML NEB INHALATION PRN (13:11)
[2019-10-14] MEDS: THYROID, PORK 30 MG TAB PO SCH (13:31)
[2019-10-14] MEDS ORDERED: ASPIRIN 325 MG TAB PO STA (13:33)
[2019-10-14] MEDS: LISINOPRIL 20 MG TAB PO SCH ×2 (13:33→20:21)
[2019-10-14] MEDS ORDERED: ACETAMINOPHEN TAB 500 MG TAB PO PRN (13:34)
[2019-10-14] MEDS ORDERED: ACETAMINOPHEN TAB 500 MG TAB PO STA (13:35)
[2019-10-14] MEDS ORDERED: TAMSULOSIN 0.4 MG CAP.ER.24H PO STA (13:39)
[2019-10-14 16:37] LABS: Glucose,Whole Blood 328 mg/dL (75-99)
--- NOTE | 2019-10-14 17:17 | CONS ---
CONSULTATION CHIEF COMPLAINT: Syncope. This is an 79-year-old gentleman with history of hypertension, hypothyroidism and non- insulin-dependent diabetes who presented to the hospital having had an episode of syncope. Patient had a recent left knee replacement surgery and got up in the evening to go sleep in his bedroom, went to the bathroom, subsequently had discomfort in the epigastric area that initially he thought were like hunger pains, subsequently became little more intense. He felt nauseous, thought he was going to vomit and subsequently he passed out. He also had chest tightness in all this and subsequently he was brought to the emergency room and has not had any recurrence of his symptoms. His EKG does not reveal acute ischemic changes and 2 sets of cardiac enzymes have been negative. There is no prior history of syncope. The patient's D-dimer was elevated. He went on to have a CT chest that is negative for pulmonary embolism. Patient's syncope could be vasovagal from having epigastric discomfort, but we certainly have to rule out underlying ischemic heart disease. I will obtain a 2D echo to evaluate LV function and wall motion. If the echocardiogram is benign, I will consider doing a Lexiscan on him to rule out ischemic heart disease and if he has ischemia, do cardiac catheterization. If there is a change in his evolution over the next 24 hours, we may change the testing as needed. PAST MEDICAL HISTORY: Significant for hypothyroidism, ujo-[id number]-xphyuztdn diabetes hypertension. The patient has carotid stenosis status post left carotid endarterectomy. MEDICATIONS AT HOME: Include aspirin, Amaryl, Zestril, Synthroid, Glucophage. ALLERGIES: PENICILLIN. FAMILY HISTORY: Negative for premature coronary artery disease. SOCIAL HISTORY: Negative for smoking, EtOH abuse, or drug abuse. REVIEW OF SYSTEMS: HEENT: Unremarkable. CARDIAC: As described above. RESPIRATORY: As described above. GI: Negative. GENITOURINARY: Negative. ALLERGY/IMMUNOLOGY: Negative. MUSCULOSKELETAL: Significant for recent left knee replacement. PLANETARIUM TECHNICIAN: Significant for syncope. Rest of the system review is not relevant. PHYSICAL EXAMINATION: On exam, comfortable at rest. Heart rate is 80 beats per minute, blood pressure is 140/66, respiratory rate is 18. There is no jugular venous distention. Chest exam reveals good air entry bilaterally. Heart exam reveals first and second heart sounds. S4 is heard and a systolic murmur at the left lower sternal border. Abdomen is soft. Exam of extremities did not reveal any edema. Peripheral pulses are felt. LABS: Show a hemoglobin of 11, platelet count is 446. D-dimer is 2.8. Potassium is 4.2, creatinine is 0.9. EKG shows sinus rhythm with left axis deviation. ASSESSMENT: 1. Syncope, rule out cardiac causes. 2. Carotid stenosis status post left carotid endarterectomy. PLAN: I will obtain an echocardiogram and if the patient remains stable overnight, we will obtain a Lexiscan on him and decide on further course of action. MMRORYL / MAURICION: [id number] /
[2019-10-14] MEDS: GLIMEPIRIDE 2 MG TAB PO SCH (17:25)
[2019-10-14] MEDS: HEPARIN SODIUM,PORCINE 5,000 UNIT/ML 1 ML VIAL SQ SCH ×2 (17:25→22:59)
[2019-10-14] MEDS: INSULIN ASPART (NovoLOG) 100 UNIT/ML VIAL SQ SCH ×2 (18:29→20:24)
[2019-10-14 20:17] LABS: Glucose,Whole Blood 182 mg/dL (75-99)
[2019-10-14] MEDS: metFORMIN 500 MG TAB PO SCH (20:21)
[2019-10-14] MEDS: TAMSULOSIN 0.4 MG CAP.ER.24H PO SCH (20:21)
[2019-10-14] MEDS ORDERED: INSULIN ASPART (NovoLOG) 100 UNIT/ML VIAL SQ SCH (21:00)
--- NOTE | 2019-10-14 22:41 | P.HPIM ---
History of Present Illness H&P Date: 10/14/19 Chief Complaint: Syncope Patient is a 79-year-old male with a known history of diabetes to and history of smoking, osteoarthritis with recent history of left knee arthroplasty in September 2019 came to ER after a syncopal episode at home. Apparently patient woke up in the morning around 3:46 AM and was able to ambulate by himself to the restroom. While he was reaching to his bed patient suddenly felt epigastric discomfort and substernal tightness and slid on to the floor beside his bed. He felt very tired and didn't think he wanted to get up. Patient felt epigastric discomfort for about an hour. Patient was sweaty and losing control and felt tingling sensation in the chest when he fell on the floor. Patient was pale looking as per his . Patient is currently taking aspirin and also occasional Tylenol use. Otherwise denied any edhq-xja-qlagipk medication use. Patient does have a history of smoking. No history of coronary artery disease. Patient is very active otherwise. [facility] Chest x-ray showed widening of the superior mediastinum raising concern for aortic aneurysm. CT angiogram of the chest was recommended. CT angiogram showed no evidence of pulmonary embolism. Main pulmonary artery measuring about 3.2 cm in diameter suggesting pulmonary hypertension. D-dimer 2.8 Troponin 3 negative EKG showed normal sinus rhythm. No ST-T wave changes. Review of Systems Constitutional: Patient denies any fever or chills . No generalized weakness or weight loss. Abdomen: Patient denied nausea vomiting and diarrhea and abdominal pain. Cardiovascular: Patient denies any chest pain or short of breath no palpitations. Respiratory: patient denied any cough is from production. No shortness of breath Neurologic: Patient denied any numbness or tingling headache. Musculoskeletal: Patient denies any complaints of joint swelling or deformity. Skin: Negative Psychiatric: Negative Endocrine: No heat or cold intolerance. No recent weight gain. Genitourinary: No dysuria or hematuria. All other 14 point ROS negative except the above Past Medical History Past Medical History: Coronary Artery Disease (CAD), Diabetes Mellitus, Hypertension, Prostate Disorder Additional Past Medical History / Comment(s): hx of melanoma skin, resolving "boil" to right groin, has been on antibiotics, states now size of "BB", states Dr Raza's PA aware History of Any Multi-Drug Resistant Organisms: MRSA Date of last positivie culture/infection: 06/04/19 MDRO Source:: Right Knee Past Surgical History: Orthopedic Surgery Additional Past Surgical History / Comment(s): R knee 2014, L knee SEP 2019 Past Anesthesia/Blood Transfusion Reactions: No Reported Reaction Past Psychological History: No Psychological Hx Reported Smoking Status: Former smoker Past Alcohol Use History: Occasional Past Drug Use History: None Reported - Past Family History Father Family Medical History: Cancer Additional Family Medical History / Comment(s): Lung Cancer Sister(s) Family Medical History: Cancer Additional Family Medical History / Comment(s): Breast Cancer Mother Family Medical History: Cancer Additional Family Medical History / Comment(s): breast Son(s) Family Medical History: Cancer Additional Family Medical History / Comment(s): kidney Medications and Allergies Home Medications Medication Instructions Recorded Confirmed Type Glimepiride [Amaryl] 2 mg PO BID 02/08/14 10/14/19 History Tamsulosin [Flomax] 0.4 mg PO BID 02/08/14 10/14/19 History metFORMIN HCL [Glucophage] 500 mg PO BID 02/08/14 10/14/19 History Lisinopril [Zestril] 40 mg PO BID 09/12/19 10/14/19 History Multivitamins, Thera [Multivitamin 1 tab PO DAILY 09/12/19 10/14/19 History (formulary)] Thyroid,Pork [[place] Thyroid] 60 mg PO DAILY 09/12/19 10/14/19 History Aspirin 325 mg PO DAILY #28 tab 09/18/19 10/14/19 Rx Allergies Allergy/AdvReac Type Severity Reaction Status Date / Time Penicillins Allergy Swelling Verified 10/14/19 08:01 venom-honey bee Allergy Swelling Verified 10/14/19 08:01 [bee venom (honey bee)] Physical Exam Vitals: Vital Signs Temp Pulse Resp BP Pulse Ox 10/14/19 09:00 88 18 166/78 98 10/14/19 07:31 80 18 142/66 97 10/14/19 06:30 80 16 149/72 98 10/14/19 06:00 84 16 125/59 99 10/14/19 05:30 82 14 149/61 99 10/14/19 04:54 98.2 F 80 18 149/61 99 Intake and Output 10/13/19 10/14/19 10/14/19 22:59 06:59 14:59 Other: Weight 90.718 kg PHYSICAL EXAMINATION: Patient is lying in the bed comfortably, no acute distress, awake alert and oriented.. HEENT: Normocephalic. Neck is supple. Pupils reactive. Nostrils clear. Oral cavity is moist. Ears reveal no drainage. Neck reveals no JVD, carotid bruits, or thyromegaly. CHEST EXAMINATION: Trachea is central. Symmetrical expansion. Lung rodriguez clear to auscultation and percussion. CARDIAC: Normal S1, S2 with no gallops. No murmurs ABDOMEN: Soft. Bowel sounds normal. No organomegaly. No abdominal bruits. Extremities: reveal no edema. No clubbing or cyanosis Neurologically awake, alert, oriented x3 with well-coordinated movements. No focal deficits noted Skin: No rash or skin lesions. Psychiatric: Coperative. Nonsuicidal Musculoskeletal: No joint swelling or deformity. Normal range of motion. Results CBC & Chem 7: 10/14/19 05:04 10/14/19 05:04 Labs: Abnormal Lab Results - Last 24 Hours (Table) 10/14/19 10/14/19 10/14/19 Range/Units 05:03 05:04 05:04 WBC 12.6 H (3.8-10.6) k/uL RBC 4.06 L (4.30-5.90) m/uL Hgb 11.0 L (13.0-17.5) gm/dL Hct 35.1 L (39.0-53.0) % Neutrophils # 8.8 H (1.3-7.7) k/uL D-Dimer (<0.60) mg/L FEU Sodium 133 L (137-145) mmol/L BUN 21 H (9-20) mg/dL Glucose 153 H (74-99) mg/dL POC Glucose (mg/dL) 149 H (75-99) mg/dL AST 64 H (17-59) U/L Total Protein 6.0 L (6.3-8.2) g/dL Albumin 3.4 L (3.5-5.0) g/dL 10/14/19 Range/Units 05:04 WBC (3.8-10.6) k/uL RBC (4.30-5.90) m/uL Hgb (13.0-17.5) gm/dL Hct (39.0-53.0) % Neutrophils # (1.3-7.7) k/uL D-Dimer 2.81 H (<0.60) mg/L FEU Sodium (137-145) mmol/L BUN (9-20) mg/dL Glucose (74-99) mg/dL POC Glucose (mg/dL) (75-99) mg/dL AST (17-59) U/L Total Protein (6.3-8.2) g/dL Albumin (3.5-5.0) g/dL Thrombosis Risk Factor Assmnt - DVT/VTE Prophylaxis DVT/VTE Prophylaxis: Pharmacologic Prophylaxis ordered Assessment and Plan Assessment: Syncope likely due to vasovagal versus rule out cardiac causes. Epigastric discomfort. Improved now Diabetes type 2 [id number] Hypertension BPH currently on Flomax Previous history of smoking Obesity Recent history of left knee total arthroplasty DVT prophylaxis Plan: Patient will be continued on telemetry monitoring. We will check orthostatic vitals. Serial troponin 3 negative. D-dimer is elevated but CT angiogram is negative for pulmonary embolism. Cardiology is on board. 2-D echocardiogram was ordered. Continue with home hypoglycemic medications and insulin sliding scale. Further recommendations based on the clinical course. Time with Patient: Greater than 30
[2019-10-15] MEDS: THYROID, PORK 30 MG TAB PO SCH (05:50)
[2019-10-15 06:50] LABS: Glucose,Whole Blood 107 mg/dL (75-99)
[2019-10-15 07:02] LABS: Eosinophils % (A) 5 %; HCT 36.9 % (39.0-53.0); HGB 11.4 gm/dL (13.0-17.5); Hypochromasia Slight; Lymphocytes % (A) 19 %; MCHC 31.1 g/dL (31.0-37.0); Mean Platelet Volume 7.1; Monocytes % (A) 6 %; Neutrophils % (A) 68 %; Platelet Count 439 k/uL (150-450); RBC 4.23 m/uL (4.30-5.90); RDW 13.2 % (11.5-15.5); WBC 8.1 k/uL (3.8-10.6)
[2019-10-15 07:03] LABS: Basophils # (A) 0.1 k/uL (0-0.2); Basophils % (A) 1 %; Eosinophils # (A) 0.4 k/uL (0-0.7); Lymphocytes # (A) 1.6 k/uL (1.0-4.8); Monocytes # (A) 0.5 k/uL (0-1.0); Neutrophils # (A) 5.5 k/uL (1.3-7.7)
[2019-10-15 07:13] LABS: Calcium 9.6 mg/dL (8.4-10.2); Potassium 4.9 mmol/L (3.5-5.1)
[2019-10-15] MEDS ORDERED: AMINOPHYLLINE 500 MG/20 ML VIAL IV PRN (07:32)
[2019-10-15] MEDS ORDERED: CAFFEINE CITRATE 60 MG/3 ML VIAL IV PRN (07:32)
[2019-10-15 07:56] VITALS: RESP 18
[2019-10-15] MEDS ORDERED: DIPYRIDAMOLE 51.7 MG in SODIUM CHLORIDE 0.9% 50 ML IV ONE (08:00)
[2019-10-15] MEDS: HEPARIN SODIUM,PORCINE 5,000 UNIT/ML 1 ML VIAL SQ SCH (08:13)
[2019-10-15] MEDS: LISINOPRIL 20 MG TAB PO SCH (08:13)
[2019-10-15] MEDS ORDERED: MULTIVITAMINS, THERA 1 EACH TAB PO SCH (09:00)
[2019-10-15] MEDS ORDERED: ASPIRIN 325 MG TAB PO SCH (09:00)
[2019-10-15] MEDS ORDERED: METOPROLOL TARTRATE 25 MG TAB PO SCH (09:45)
[2019-10-15] MEDS: INSULIN ASPART (NovoLOG) 100 UNIT/ML VIAL SQ SCH ×2 (10:07→12:07)
[2019-10-15] MEDS: GLIMEPIRIDE 2 MG TAB PO SCH (11:32)
[2019-10-15] MEDS: metFORMIN 500 MG TAB PO SCH (11:32)
[2019-10-15] MEDS: TAMSULOSIN 0.4 MG CAP.ER.24H PO SCH (11:32)
[2019-10-15 11:48] LABS: Glucose,Whole Blood 159 mg/dL (75-99)
[2019-10-15 11:52] LABS: Hemoglobin A1C 8.3 % (4.0-6.0)
[2019-10-15 11:53] VITALS: BP 154/68; PULSE 81; TEMP 98.1
--- NOTE | 2019-10-15 12:03 | P.PN ---
Subjective This is a pleasant 79-year-old male past medical history significant for hypertension and diabetes mellitus. He also recently had a left knee replacement. He denies any further symptoms of chest pain, dizziness or syncope. He has had no shortness of breath, palpitations, nausea, vomiting or diaphoresis. Blood pressure 154/68 heart rate 81 afebrile and maintaining oxygen saturation on room air. Laboratory data reviewed, WBC 8.1, hgb 11.4, plt 439, sodium 137, potassium 4.9, creatinine 0.97, cardiac enzymes negative x3, LDL 129. Telemetry tracings reveal an episode last evening of likely atrial tachycardia with rates up to 150 for less than 3 seconds time. Appears regular. Pt was asymptomatic at the time. GENERAL: Well-appearing, well-nourished and in no acute distress. NECK: Supple without JVD or thyromegaly. LUNGS: Breath sounds clear to auscultation bilaterally. Respiration equal and unlabored. No wheezes, rales or rhonchi. HEART: Regular rate and rhythm with systolic ejection murmur at the left sternal border, no rubs or gallops. S1 and S2 heard. EXTREMITIES: Normal range of motion, trace edema bilaterally with slightly worse on the left. No clubbing or cyanosis. Peripheral pulses intact. ASSESSMENT Syncope Chest pain, an acute event has been ruled out. Atrial tachycardia Dyslipidemia Peripheral vascular disease status post left carotid endarterectomy Hypertension Diabetes mellitus PLAN Proceed with Persantine stress test as previously discussed. If abnormal will consider coronary angiography. Obtain left lower extremity doppler to assess for DVT. Initiate on lopressor 25 mg BID and atorvastatin 40 mg daily. If stress test is normal he can be discharged with an event monitor. Nurse Practitioner note has been reviewed, I agree with a documented findings and plan of care. Patient was seen and examined. Objective - Vital Signs Vital signs: Vital Signs Temp 98 F 10/15/19 07:54 Pulse 75 10/15/19 07:54 Resp 18 10/15/19 07:54 BP 158/73 10/15/19 07:54 Pulse Ox 94 L 10/15/19 04:00 Intake & Output 10/14/19 10/15/19 10/15/19 18:59 06:59 18:59 Intake Total 440 Balance 440 Weight 90.718 kg Intake: Oral 240 Other 200 Other: Voiding Method Toilet Toilet Toilet # Voids 1 1 - Labs CBC & Chem 7: 10/15/19 06:46 10/15/19 06:46 Labs: Abnormal Lab Results - Last 24 Hours (Table) 10/14/19 10/14/19 10/15/19 Range/Units 16:36 20:15 06:46 RBC (4.30-5.90) m/uL Hgb (13.0-17.5) gm/dL Hct (39.0-53.0) % Glucose 105 H (74-99) mg/dL POC Glucose (mg/dL) 328 H 182 H (75-99) mg/dL LDL Cholesterol, Calc 129 H (0-99) mg/dL 10/15/19 10/15/19 10/15/19 Range/Units 06:46 06:49 11:47 RBC 4.23 L (4.30-5.90) m/uL Hgb 11.4 L (13.0-17.5) gm/dL Hct 36.9 L (39.0-53.0) % Glucose (74-99) mg/dL POC Glucose (mg/dL) 107 H 159 H (75-99) mg/dL LDL Cholesterol, Calc (0-99) mg/dL
[2019-10-15] MEDS ORDERED: ATORVASTATIN 40 MG TAB PO SCH (12:15)
--- NOTE | 2019-10-15 12:36 | NM ---
EXAMINATION TYPE: NM stress persantine cardiolit DATE OF EXAM: 10/15/2019 COMPARISON: NONE HISTORY: Chest pain TECHNIQUE: After the intravenous administration of 9.9 mCi Tc 99m Sestamibi - Cardiolite resting SPE CT images acquired 45 minutes post injection. The patient received 51.7 mg Persantine, 27 mCi Tc 99m Sestamibi - Stress images obtained 45 minutes post injection FINDINGS: Review of stress and rest SPECT images demonstrates no distinct perfusion abnormality. Gated analysi s shows normal wall motion with an estimated left ventricular ejection fraction of 59 %. IMPRESSION: No scintigraphic evidence for reversible ischemia.
--- NOTE | 2019-10-15 12:39 | US ---
EXAMINATION TYPE: US venous doppler duplex LE LT DATE OF EXAM: 10/15/2019 12:14 PM COMPARISON: NONE CLINICAL HISTORY: recent sx, elevated d-dimer, swelling. Post left knee replacement 09-17-19. Patient stated is in hospital for cardiac workup due to syncopal episode SIDE PERFORMED: Left TECHNIQUE: The lower extremity deep venous system is examined utilizing real time linear array sonog garcia with graded compression, doppler sonography and color-flow sonography. VESSELS IMAGED: Common Femoral Vein Deep Femoral Vein Greater Saphenous Vein * Femoral Vein Popliteal Vein Small Saphenous Vein * Proximal Calf Veins (* superficial vessels) Left Leg: Negative for DVT. Grayscale, color doppler, spectral doppler imaging performed of the deep veins of the left lower extr emity. There is normal flow, compressibility, vascular waveforms. IMPRESSION: No sonographic evidence of deep venous thrombosis within the visualized left lower extre mity.
--- NOTE | 2019-10-15 14:00 | P.DS ---
Providers Date of admission: 10/14/19 07:09 Expected date of discharge: 10/15/19 Attending physician: Luis E Ponce MD Consults: 10/14/19 07:08 Consult Physician Urgent Consulting Provider: Taras Gaona Consult Reason/Comments: chest pain, syncope Do you want consulting provider notified?: Yes, Notify in am Primary care physician: Lexis Mcfarland Hospital Course: Final Diagnoses: Syncope likely due to vasovagal. Chest pain, Acute coronary event ruled out as per cardiology Atrial tachycardia Epigastric discomfort. Resolved. Diabetes type 2 [id number] Hypertension Peripheral vascular disease, history of left carotid endarterectomy BPH currently on Flomax Previous history of smoking Obesity, BMI 32.3 Dyslipidemia Hospital course:Patient is a 79-year-old male with a known history of diabetes to and history of smoking, osteoarthritis with recent history of left knee arthroplasty in September 2019 came to ER after a syncopal episode at home. Apparently patient woke up in the morning around 3:46 AM and was able to ambulate by himself to the restroom. While he was reaching to his bed patient suddenly felt epigastric discomfort and substernal tightness and slid on to the floor beside his bed. He felt very tired and didn't think he wanted to get up. Patient felt epigastric discomfort for about an hour. Patient was sweaty and losing control and felt tingling sensation in the chest when he fell on the floor. Patient was pale looking as per his . Patient is currently taking aspirin and also occasional Tylenol use. Otherwise denied any qbuy-bnu-hsntutn medication use. Patient does have a history of smoking. No history of coronary artery disease. Patient is very active otherwise. [facility] Chest x-ray showed widening of the superior mediastinum raising concern for aortic aneurysm. CT angiogram of the chest was recommended. CT angiogram showed no evidence of pulmonary embolism. Main pulmonary artery measuring about 3.2 cm in diameter suggesting pulmonary hypertension. D-dimer 2.8 Troponin 3 negative EKG showed normal sinus rhythm. No ST-T wave changes. During the night patient had an episode of atrial tachycardia, heart rates up to 150, less than 3 seconds, asymptomatic. Beta marcie added to medication regime as per cardiology. Significant clinical improvement. Underwent Persantine stress test reporting no reversible ischemia, EF 59%. Venous Doppler reporting new DVT of the left lower extremity. Patient will be discharged home pending cardiology clearance, in a stable condition with her prognosis. Patient to oyster picker an event monitor at cardiology's office. EXAM: GENERAL:Alert and oriented 3, no acute distress. PULMONARY: Clear to auscultation, bilateral bases diminished. CARDIAC: Normal S1, S2 with no gallops. No murmurs ABDOMEN: Soft. Nontender, nondistended. Bowel sounds normal. Neurologically: No focal deficits noted. The impression and plan of care has been dictated as directed. : I performed a history and examination of this patient, discussed the same with the dictator. I agree with the dictator's note ,documented as a scribe. Any additional findings or plans will be noted. Patient Condition at Discharge: Stable Plan - Discharge Summary Discharge Rx Participant: No New Discharge Prescriptions: New Atorvastatin [Lipitor] 40 mg PO DAILY #30 tab Metoprolol Tartrate [Lopressor] 25 mg PO BID #60 tab Continue Tamsulosin [Flomax] 0.4 mg PO BID metFORMIN HCL [Glucophage] 500 mg PO BID Glimepiride [Amaryl] 2 mg PO BID Thyroid,Pork [[place] Thyroid] 60 mg PO DAILY Multivitamins, Thera [Multivitamin (formulary)] 1 tab PO DAILY Lisinopril [Zestril] 40 mg PO BID Aspirin 325 mg PO DAILY #28 tab Discharge Medication List Glimepiride [Amaryl] 2 mg PO BID 02/08/14 [History] Tamsulosin [Flomax] 0.4 mg PO BID 02/08/14 [History] metFORMIN HCL [Glucophage] 500 mg PO BID 02/08/14 [History] Lisinopril [Zestril] 40 mg PO BID 09/12/19 [History] Multivitamins, Thera [Multivitamin (formulary)] 1 tab PO DAILY 09/12/19 [History] Thyroid,Pork [[place] Thyroid] 60 mg PO DAILY 09/12/19 [History] Aspirin 325 mg PO DAILY #28 tab 09/18/19 [Rx] Atorvastatin [Lipitor] 40 mg PO DAILY #30 tab 10/15/19 [Rx] Metoprolol Tartrate [Lopressor] 25 mg PO BID #60 tab 10/15/19 [Rx] Follow up Appointment(s)/Referral(s): Lexis Mcfarland DO [Primary Care Provider] - 3 Days Taras Gaona MD [STAFF PHYSICIAN] - 1 Week (Upon discharge pick-up an event monitor from the office. Appointment with Dr. Gaona in 4 weeks. ) Activity/Diet/Wound Care/Special Instructions: Event monitor as per cardiology, pickup at cardiology office after DC
--- NOTE | 2019-10-15 14:30 | EST ---
EXERCISE STRESS AGE: 79 SEX: M HT: 5'6-2" WT: 200 PROTOCOL: Persantine Cardiolite Study HEART RATE REST: 73 BLOOD PRESSURE REST: 155/72 MAXIMUM HEART RATE ACHIEVED: 86 MAXIMUM BLOOD PRESSURE: 122/78 85% MPHR: 118 100% MPHR: 139 INDICATIONS: Chest pain. CLINICAL INFORMATION: A Persantine Cardiolite study was performed. Peak heart rate of 86 was achieved. Maximum blood pressure of 122/78 mmHg was noted. Resting EKG shows normal sinus rhythm with normal AR interval and QRS duration and normal ST-T waves. No ST-segment depression suggestive of ischemia was noted during Persantine infusion. The results of the nuclear study will follow. MMODL / IJN: [id number] /
--- NOTE | 2019-10-16 13:01 | ECHOF ---
Referral Reason:syncope MEASUREMENTS -------- HEIGHT: 165.1 cm WEIGHT: 93.0 kg BP: RVIDd: 3.6 cm (< 3.3) IVSd: 1.6 cm (0.6 - 1.1) LVIDd: 3.9 cm (3.9 - 5.3) LVPWd: 1.6 cm (0.6 - 1.1) IVSs: 1.8 cm LVIDs: 3.3 cm LVPWs: 1.6 cm LA Diam: 4.4 cm (2.7 - 3.8) LAESV Index (A-L): 37.29 ml/m Ao Diam: 3.6 cm (2.0 - 3.7) AV Cusp: 2.1 cm (1.5 - 2.6) LA Diam: 3.9 cm (2.7 - 3.8) MV EXCURSION: 13.883 mm (> 18.000) MV EF SLOPE: 65 mm/s (70 - 150) EPSS: 0.6 cm MV E Daniel: 0.50 m/s MV DecT: 194 ms MV A Daniel: 0.87 m/s MV E/A Ratio: 0.58 RAP: 5.00 mmHg RVSP: 18.23 mmHg FINDINGS -------- Sinus rhythm. This was a techncally difficult study with suboptimal views, , Lumason utilized for enhancement of im ages. The left ventricular size is normal. There is mild concentric left ventricular hypertrophy. Overa ll left ventricular systolic function is normal with, an EF between 55 - 60 %. The diastolic fillin g pattern is normal for the age of the patient 9.36. The right ventricle is normal in size. The left atrium is moderately dilated. LA is moderately dilated 34-39 ml/m2 The right atrial size is normal. 5.0mg OF Lumason UTLIZED: 2 OR MORE WALL SEGMENTS NOT VISUALIZED. There is mild aortic valve sclerosis. Mild mitral annular calcification present. Mild mitral regurgitation is present. Mild tricuspid regurgitation present. There is no evidence of pulmonary hypertension. The right v entricular systolic pressure, as measured by Doppler, is 18.23mmHg. There is no pulmonic regurgitation present. The aortic root size is normal. There is no pericardial effusion. CONCLUSIONS -------- 1. Sinus rhythm. 2. This was a techncally difficult study with suboptimal views, , Lumason utilized for enhancement of images. 3. The left ventricular size is normal. 4. There is mild concentric left ventricular hypertrophy. 5. Overall left ventricular systolic function is normal with, an EF between 55 - 60 %. 6. The diastolic filling pattern is normal for the age of the patient 9.36 7. The right ventricle is normal in size. 8. The left atrium is moderately dilated. 9. LA is moderately dilated 34-39 ml/m2 10. The right atrial size is normal. 11. 5.0mg OF Lumason UTLIZED: 2 OR MORE WALL SEGMENTS NOT VISUALIZED. 12. There is mild aortic valve sclerosis. 13. Mild mitral annular calcification present. 14. Mild mitral regurgitation is present. 15. Mild tricuspid regurgitation present. 16. There is no evidence of pulmonary hypertension. 17. The right ventricular systolic pressure, as measured by Doppler, is 18.23mmHg. 18. There is no pulmonic regurgitation present. 19. The aortic root size is normal. 20. There is no pericardial effusion. PROCESS MANAGER: Valarie Hernandez RDCS
== END 2019-10-15 15:49 ==
LOC: EC 04:52 → 1SOBS 07:09
PROVIDERS: ADMIT Family Medicine; ATTEND Family Medicine
DX: R55 Syncope and collapse (principal); R07.89 Other chest pain; I47.1 Supraventricular tachycardia; R10.13 Epigastric pain; E11.9 Type 2 diabetes mellitus without complications; I10 Essential (primary) hypertension; I73.9 Peripheral vascular disease, unspecified; N40.0 Benign prostatic hyperplasia without lower urinary tract symptoms; E66.9 Obesity, unspecified; E78.5 Hyperlipidemia, unspecified; E03.9 Hypothyroidism, unspecified; I49.1 Atrial premature depolarization; R79.1 Abnormal coagulation profile; I25.10 Atherosclerotic heart disease of native coronary artery without angina pectoris; L02.224 Furuncle of groin; I65.29 Occlusion and stenosis of unspecified carotid artery; R93.89 Abnormal findings on diagnostic imaging of other specified body structures; R93.1 Abnormal findings on diagnostic imaging of heart and coronary circulation; I08.3 Combined rheumatic disorders of mitral, aortic and tricuspid valves; Z68.32 Body mass index [BMI] 32.0-32.9, adult; Z96.652 Presence of left artificial knee joint; Z79.84 Long term (current) use of oral hypoglycemic drugs; Z79.899 Other long term (current) drug therapy; Z79.890 Hormone replacement therapy; Z79.82 Long term (current) use of aspirin; Z88.0 Allergy status to penicillin; Z91.030 Bee allergy status; Z98.890 Other specified postprocedural states; Z85.820 Personal history of malignant melanoma of skin; Z86.14 Personal history of Methicillin resistant Staphylococcus aureus infection; Z87.891 Personal history of nicotine dependence; Z80.1 Family history of malignant neoplasm of trachea, bronchus and lung; Z80.3 Family history of malignant neoplasm of breast; Z80.51 Family history of malignant neoplasm of kidney
CPT/HCPCS: 93005 ×2; 96372 ×2; 96360; 99285; 36415; 93017; 85379; 80061; 80053; 80048; 83735; 84484; 85025 ×2; 85610; 85730; 83036; 71046; 93971; 71275; 78452; G0378 ×2; C8929; A9500; J1644 ×2; J1245; Q9950; Q9967; 93306

== ENCOUNTER 2024-05-10 22:37 | Emergency (ER) | payer MEDICARE ==
[2024-05-10 22:46] VITALS: TEMP 97.7
[2024-05-10] MEDS: FAMOTIDINE 20 MG/2 ML VIAL IV STA (23:01)
--- NOTE | 2024-05-10 23:10 | ED ---
General Adult HPI - General Chief complaint: Allergic Reaction Stated complaint: Allergic Reaction Time Seen by Provider: 05/10/24 22:46 Source: patient Mode of arrival: EMS Limitations: no limitations - History of Present Illness Initial comments: This patient is an 83-year-old man who arrives by ambulance to have evaluation for what he suspects is allergic reaction. The patient states that this afternoon he had been working with some [employer]-tite adhesive and thinks that he may have gotten some on his finger and then scratched the upper portion of his left arm. Later he noticed that he was having some itching and hives to the left arm. Patient also noticed that he was developing some swelling of the lips and tongue. -: hour(s) Location: face, left, upper extremity Severity scale (1-10): 0 Quality: burning Improves with: none Worsens with: none Treatments Prior to Arrival: other (IV diphenhydramine 50 mg, Solu-Medrol 125 mg) - Related Data Home Medications Medication Instructions Recorded Confirmed Glimepiride [Amaryl] 2 mg PO BID 02/08/14 10/14/19 Tamsulosin [Flomax] 0.4 mg PO BID 02/08/14 10/14/19 metFORMIN HCL [Glucophage] 500 mg PO BID 02/08/14 10/14/19 Multivitamins, Thera [Multivitamin 1 tab PO DAILY 09/12/19 10/14/19 (formulary)] Thyroid,Pork [[place] Thyroid] 60 mg PO DAILY 09/12/19 10/14/19 lisinopriL [Zestril] 40 mg PO BID 09/12/19 10/14/19 Previous Rx's Medication Instructions Recorded Aspirin 325 mg PO DAILY #28 tab 09/18/19 Atorvastatin [Lipitor] 40 mg PO DAILY #30 tab 10/15/19 Metoprolol Tartrate [Lopressor] 25 mg PO BID #60 tab 10/15/19 Famotidine [Pepcid] 20 mg PO BID #14 tablet 05/11/24 Losartan [Cozaar] 50 mg PO DAILY #20 tab 05/11/24 diphenhydrAMINE [Benadryl] 50 mg PO QID PRN #24 capsule 05/11/24 predniSONE [Deltasone] 20 mg PO BID #8 tab 05/11/24 Allergies Allergy/AdvReac Type Severity Reaction Status Date / Time Penicillins Allergy Swelling Verified 05/10/24 22:46 venom-honey bee Allergy Swelling Verified 05/10/24 22:46 [bee venom (honey bee)] Review of Systems ROS Statement: Those systems with pertinent positive or pertinent negative responses have been documented in the HPI. ROS Other: All systems not noted in ROS Statement are negative. Constitutional: Denies: fever, chills Eyes: Denies: eye pain, vision change ENT: Reports: other (Lip and tongue swelling). Denies: throat pain, congestion Respiratory: Denies: cough, dyspnea, wheezes Cardiovascular: Denies: palpitations, edema Gastrointestinal: Denies: abdominal pain, nausea, vomiting Genitourinary: Denies: dysuria, hematuria Musculoskeletal: Denies: back pain Skin: Reports: rash, pruritus Neurological: Denies: headache, weakness Past Medical History Past Medical History: Coronary Artery Disease (CAD), Diabetes Mellitus, Hypertension, Prostate Disorder Additional Past Medical History / Comment(s): hx of melanoma skin, resolving "boil" to right groin, has been on antibiotics, states now size of "BB", states Dr Raza's PA aware History of Any Multi-Drug Resistant Organisms: MRSA Date of last positivie culture/infection: 06/04/19 MDRO Source:: Right Knee Past Surgical History: Orthopedic Surgery Additional Past Surgical History / Comment(s): R knee 2014, L knee SEP 2019 Past Anesthesia/Blood Transfusion Reactions: No Reported Reaction Past Psychological History: No Psychological Hx Reported Smoking Status: Former smoker Past Alcohol Use History: Occasional Past Drug Use History: None Reported - Past Family History Mother Family Medical History: Cancer Additional Family Medical History / Comment(s): breast Son(s) Family Medical History: Cancer Additional Family Medical History / Comment(s): kidney Father Family Medical History: Cancer Additional Family Medical History / Comment(s): Lung Cancer Sister(s) Family Medical History: Cancer Additional Family Medical History / Comment(s): Breast Cancer General Exam Limitations: no limitations General appearance: alert, in no apparent distress Head exam: Present: atraumatic, normocephalic Eye exam: Present: normal appearance. Absent: scleral icterus, conjunctival injection ENT exam: Present: mucous membranes moist, other (Patient has mild to moderate swelling of the lips and tongue bilaterally.) Neck exam: Present: normal inspection, full ROM. Absent: tenderness, meningismus Respiratory exam: Present: normal lung sounds bilaterally. Absent: respiratory distress, wheezes, rales, rhonchi, stridor, accessory muscle use Cardiovascular Exam: Present: regular rate, normal rhythm, normal heart sounds. Absent: systolic murmur, diastolic murmur, rubs, gallop GI/Abdominal exam: Present: soft. Absent: distended, tenderness, guarding, rebound, rigid, mass Extremities exam: Present: normal inspection, normal capillary refill. Absent: pedal edema, calf tenderness Back exam: Present: normal inspection. Absent: CVA tenderness (R), CVA tenderness (L) Neurological exam: Present: alert Skin exam: Present: warm, dry, intact, normal color. Absent: rash Course Vital Signs 05/10/24 05/11/24 05/11/24 22:38 00:31 01:06 Temperature 97.7 F Pulse Rate 85 91 89 Respiratory 18 17 18 Rate Blood Pressure 182/76 182/96 185/92 O2 Sat by Pulse 97 99 97 Oximetry Medical Decision Making - Medical Decision Making Was pt. sent in by a medical professional or institution (Dr. PA, DIRECTOR OF EPIDEMIOLOGY, urgent care, hospital, or snf...) When possible be specific @ -[No] Did you speak to anyone other than the patient for history (EMS, parent, family, police, friend...)? What history was obtained from this source @ -[No] Did you review nursing and triage notes (agree or disagree)? Why? @ -[I reviewed and agree with nursing and triage notes] Were old charts reviewed (outside hosp., previous admission, EMS record, old EKG, old radiological studies, urgent care reports/EKG's, snf records)? Report findings @ -[No old charts were reviewed] Differential Diagnosis (chest pain, altered mental status, abdominal pain women, abdominal pain men, vaginal bleeding, weakness, fever, dyspnea, syncope, headache, dizziness, GI bleed, back pain, seizure, CVA, palpatations, mental health, musculoskeletal)? @ -[Amphetamine Toxicity Anxiety Disorders Apnea, Sleep Cocaine-Related Cardiomyopathy Heart Failure Hyperthyroidism, Thyroid Storm, and Graves Disease Hypertrophic Cardiomyopathy Myocardial Infarction Phencyclidine Toxicity Primary Aldosteronism Stroke, Hemorrhagic Stroke, Ischemic EKG interpreted by me (3pts min.). @ -[As above] X-rays interpreted by me (1pt min.). @ -[None done] CT interpreted by me (1pt min.). @ -[None done] U/S interpreted by me (1pt. min.). @ -[None done] What testing was considered but not performed or refused? (CT, X-rays, U/S, labs)? Why? @ -[None] What meds were considered but not given or refused? Why? @ -[None] Did you discuss the management of the patient with other professionals (professionals i.e. , PA, DIRECTOR OF EPIDEMIOLOGY, lab, RT, psych nurse, social services director, machine setter sheet metal, teacher, chief technology officer, director of casework)? Give summary @ -[No] Was smoking cessation discussed for >3mins.? @ -[No] Was critical care preformed (if so, how long)? @ -[No] Were there social determinants of health that impacted care today? How? (Homelessness, low income, unemployed, alcoholism, drug addiction, transportation, low edu. Level, literacy, decrease access to med. care, alf, rehab)? @ -[No] Was there de-escalation of care discussed even if they declined (Discuss DNR or withdrawal of care, Hospice)? DNR status @ -[No] What co-morbidities impacted this encounter? (DM, HTN, Smoking, COPD, CAD, Cancer, CVA, ARF, Chemo, Hep., AIDS, mental health diagnosis, sleep apnea, morbid obesity)? @ -[None] Was patient admitted / discharged? Hospital course, mention meds given and route, prescriptions, significant lab abnormalities, going to OR and other pertinent info. @ -[Patient is an 83-year-old man with some urticaria concerned about allergic reaction. He has had improvement here and would like to go home. Patient noted to have hypertension and will have follow-up related to this. Discussed return parameters Undiagnosed new problem with uncertain prognosis? @ -[No] Drug Therapy requiring intensive monitoring for toxicity (Heparin, Nitro, Insulin, Cardizem)? @ -[No] Were any procedures done? @ -[No] Diagnosis/symptom? @ -[Acute allergic reaction Hypertension Acute, or Chronic, or Acute on Chronic? @ -[Acute Uncomplicated (without systemic symptoms) or Complicated (systemic symptoms)? @ -[Uncomplicated Side effects of treatment? @ -[No] Exacerbation, Progression, or Severe Exacerbation? @ -[No] Poses a threat to life or bodily function? How? (Chest pain, [place], [place], pneumonia, PE, COPD, DKA, ARF, appy, cholecystitis, CVA, Diverticulitis, Homicidal, Suicidal, threat to staff... and all critical care pts) @ -[No] Disposition Clinical Impression: Allergic reaction, Hypertension Disposition: HOME SELF-CARE Condition: Good Instructions (If sedation given, give patient instructions): Hypertension (ED), General Allergic Reaction (ED) Prescriptions: diphenhydrAMINE [Benadryl] 50 mg PO QID PRN #24 capsule PRN Reason: Itching Losartan [Cozaar] 50 mg PO DAILY #20 tab predniSONE [Deltasone] 20 mg PO BID #8 tab Famotidine [Pepcid] 20 mg PO BID #14 tablet Is patient prescribed a controlled substance at d/c from ED?: No Referrals: Lexis Mcfarland DO [Primary Care Provider] - 1-2 days
[2024-05-11 01:23] VITALS: BP 185/92; PULSE 89; RESP 18
== END 2024-05-11 01:33 | disposition home or self-care (01) ==
LOC: EC 22:37
DX: T78.40XA Allergy, unspecified, initial encounter (principal); I10 Essential (primary) hypertension; Z79.899 Other long term (current) drug therapy; Z88.0 Allergy status to penicillin; Z91.030 Bee allergy status; Z87.891 Personal history of nicotine dependence
CPT/HCPCS: 99283; 96374; J3490